=== PATIENT | male | born 1950 | race Caucasian/White ===

== ENCOUNTER 2017-10-04 12:57 | Inpatient (IN) | payer MEDICARE ==
[~2017-10-04] VITALS: Ht 188 cm; Wt 103.0 kg
[~2017-10-04 12:57] MED LIST: ACET1TAB12 PO; AEC81 PO; AMLO2.5T PO; AMLODIPINE PO; CLON0.5T4 PO; L.AC1CAP6 PO; LEVO500T2 PO; LOSA25TA21 PO; POTASSIUM IODIDE PO; VITAMIN D3 PO; VITAMIN K PO; allegra PO
[2017-10-04 13:20] LABS: BASOPHILS % (AUTO) 0.4 % (0.0-5.0); EOSINOPHILS % (AUTO) 3.9 % (0.0-8.0); HEMATOCRIT 39.1 % (42-54); LYMPHOCYTES % (AUTO) 15.2 % (21.0-51.0); MEAN CORPUSCULAR HEMOGLOBIN 28.9 pg (27.0-33.0); MEAN CORPUSCULAR HGB CONC 33.3 g/dL (32.0-36.0); MONOCYTES % (AUTO) 10.5 % (3.0-13.0); PLATELET COUNT (AUTO) 181 K/uL (130-400); RED CELL DISTRIBUTION WIDTH 15.6 % (11.0-15.5); WHITE BLOOD COUNT (AUTO) 8.1 K/uL (4.8-10.8)
[2017-10-04 13:30] LABS: POTASSIUM 3.9 mmol/L (3.5-5.1)
[2017-10-04] MEDS ORDERED: SODIUM CHLORIDE 0.9% 1000ML 1,000 ML IV ONE ×2 (13:32→15:53)
[2017-10-04 13:35] LABS: ALBUMIN 3.4 g/dL (3.5-5.0); BILIRUBIN,TOTAL 1.7 mg/dL (0.2-1.0); TOTAL PROTEIN, SERUM 7.4 g/dL (6.0-8.3)
[2017-10-04] MEDS ORDERED: CEFTRIAXONE SODIUM 1 GM ONE (14:08)
[2017-10-04] MEDS ORDERED: METRONIDAZOLE 500MG/100ML BAG 100 ML ONE (14:08)
[2017-10-04] MEDS ORDERED: IOPAMIDOL-370 75 ML VIAL IV ONE (14:14)
[2017-10-04] MEDS ORDERED: DIATR MEGLU/DIATRIZOATE SODIUM 30 ML BOTTLE PO ONE (14:15)
[2017-10-04] MEDS: SODIUM CHLORIDE 0.9% 1000ML 1,000 ML IV SCH (15:01)
[2017-10-04 15:14] LABS: BILIRUBIN,URINE Negative (NEGATIVE); COLOR,URINE Yellow (YELLOW); GLUCOSE, URINE (UA) Negative (NEGATIVE); KETONES,URINE Negative (NEGATIVE); LEUKOCYTE ESTERASE ,URINE Negative (NEGATIVE); NITRATE,URINE Negative (NEGATIVE); OCCULT BLOOD,URINE Negative (NEGATIVE); PH,URINE 6.5 (5.0-8.0); PROTEIN,URINE Negative (NEGATIVE)
[2017-10-04 15:15] LABS: APPEARANCE,URINE CLEAR (CLEAR)
[2017-10-04] MEDS ORDERED: GUAIFENESIN-DM 200/20 MG 10 ML PO PRN (15:15)
[2017-10-04] MEDS ORDERED: ACETAMINOPHEN-CODEINE 300/30MG TAB PO PRN (15:15)
[2017-10-04] MEDS ORDERED: ONDANSETRON HCL 4 MG/2 ML VIAL IV PRN (15:15)
[2017-10-04] MEDS ORDERED: ACETAMINOPHEN 325 MG TAB PO PRN ×2 (15:15)
[2017-10-04] MEDS ORDERED: ACETAMINOPHEN 325 MG TAB ONE (17:28)
[2017-10-04] MEDS ORDERED: ZOSYN 3.375GM+NS 50ML 50 ML IV SCH (21:00)
[2017-10-04] MEDS ORDERED: ZOSYN 3.375GM+NS 50ML 50 ML IV ONE (21:18)
[2017-10-04 22:00] VITALS: BP 154/89
[2017-10-04] MEDS ORDERED: LOSA100T29 PO (22:18)
[2017-10-05] MEDS: SODIUM CHLORIDE 0.9% 1000ML 1,000 ML IV SCH ×3 (00:19→21:24)
[2017-10-05 04:26] VITALS: BP 149/74
[2017-10-05] MEDS: MEPERIDINE-PF 25 MG/ML SYG IVP PRN ×2 (04:30→21:33)
[2017-10-05 05:28] LABS: HEMATOCRIT 36.3 % (42-54); MEAN CORPUSCULAR HEMOGLOBIN 28.9 pg (27.0-33.0); MEAN CORPUSCULAR HGB CONC 33.1 g/dL (32.0-36.0); MEAN CORPUSCULAR VOLUME 87.3 fL (79-99); PLATELET COUNT (AUTO) 168 K/uL (130-400); RED BLOOD CELL COUNT(AUTO) 4.16 MIL/uL (4.50-6.20); RED CELL DISTRIBUTION WIDTH 15.3 % (11.0-15.5); WHITE BLOOD COUNT (AUTO) 7.6 K/uL (4.8-10.8)
[2017-10-05 05:41] LABS: BILIRUBIN,TOTAL 1.4 mg/dL (0.2-1.0); TOTAL PROTEIN, SERUM 6.5 g/dL (6.0-8.3)
[2017-10-05 07:45] VITALS: BP 140/83
[2017-10-05] MEDS ORDERED: ZOSYN 3.375GM+NS 50ML 50 ML IV SCH (09:00)
[2017-10-05] MEDS: PANTOPRAZOLE SODIUM 40 MG TABLET.DR PO SCH (09:00)
[2017-10-05] MEDS ORDERED: LORAZEPAM 2 MG/ML 1 ML VIAL IVP SCH (09:53)
[2017-10-05 11:46] VITALS: BP 151/69
[2017-10-05 16:00] VITALS: BP 149/98
[2017-10-05] MEDS: ZOSYN 3.375GM+NS 50ML 50 ML IV SCH ×2 (16:07→19:13)
[2017-10-05 20:00] VITALS: BP 155/81
[2017-10-05] MEDS: UNASYN 3GM+NS 100ML 100 ML IV SCH (21:24)
[2017-10-06] VITALS (28 sets, daily range): BP systolic 107–170; BP diastolic 51–99
[2017-10-06] MEDS: MEPERIDINE-PF 25 MG/ML SYG IVP PRN ×2 (02:52→11:09)
[2017-10-06] MEDS: UNASYN 3GM+NS 100ML 100 ML IV SCH ×3 (04:59→22:31)
[2017-10-06 05:13] LABS: HEMATOCRIT 32.9 % (42-54); MEAN CORPUSCULAR HEMOGLOBIN 29.4 pg (27.0-33.0); MEAN CORPUSCULAR HGB CONC 34.3 g/dL (32.0-36.0); MEAN CORPUSCULAR VOLUME 85.7 fL (79-99); PLATELET COUNT (AUTO) 171 K/uL (130-400); RED BLOOD CELL COUNT(AUTO) 3.84 MIL/uL (4.50-6.20); RED CELL DISTRIBUTION WIDTH 15.1 % (11.0-15.5); WHITE BLOOD COUNT (AUTO) 6.4 K/uL (4.8-10.8)
[2017-10-06] MEDS: SODIUM CHLORIDE 0.9% 1000ML 1,000 ML IV SCH ×2 (07:01→17:42)
[2017-10-06] MEDS: PANTOPRAZOLE SODIUM 40 MG TABLET.DR PO SCH (08:05)
[2017-10-06] MEDS ORDERED: ISOVUE-370 50ML VIAL IV ONE (08:48)
[2017-10-06] MEDS ORDERED: NEOSTIGMINE METHYLSULFATE 1MG/ML IV ONE (09:00)
[2017-10-06] MEDS ORDERED: GLYCOPYRROLATE 0.2 MG/ML 5 ML VIAL ONE (09:00)
[2017-10-06] MEDS ORDERED: ONDANSETRON HCL 4 MG/2 ML VIAL ONE (09:00)
[2017-10-06] MEDS ORDERED: DEXAMETHASONE SOD PHOSPHATE 10MG/ML 1ML VIAL ONE (09:00)
[2017-10-06] MEDS ORDERED: LIDOCAINE PF 2% 5ML ABBOJECT ONE (09:01)
[2017-10-06] MEDS ORDERED: SUCCINYLCHOLINE 200MG/10ML SYR ONE (09:01)
[2017-10-06] MEDS ORDERED: PROPOFOL 10 MG/ML 20ML VIAL IV ONE ×2 (09:01→09:57)
[2017-10-06] MEDS ORDERED: FENTANYL CITRATE PF 50 MCG/1 ML 2ML VIAL ONE ×3 (09:01→12:01)
[2017-10-06] MEDS ORDERED: MIDAZOLAM HCL 1 MG/ML 2ML VIAL ONE (09:01)
[2017-10-06] MEDS ORDERED: BUPIVACAINE/PF 0.5% 30ML VIAL ONE (09:09)
[2017-10-06] MEDS ORDERED: MORPHINE SULFATE 2 MG/ML 1ML SYG ONE ×2 (11:16→11:31)
[2017-10-06] MEDS ORDERED: TRAMADOL HCL 50 MG TABLET PO PRN ×2 (12:45)
[2017-10-06] MEDS ORDERED: COMPOUND IV REFRIGERATED 1 EACH IVSOLN MISC PRN (19:00)
[2017-10-06] MEDS: DOCUSATE SODIUM 100 MG CAP PO SCH (20:03)
[2017-10-07] VITALS: BP 137/87
[2017-10-07] MEDS: SODIUM CHLORIDE 0.9% 1000ML 1,000 ML IV SCH (02:49)
[2017-10-07 04:00] VITALS: BP 145/81
[2017-10-07] MEDS: UNASYN 3GM+NS 100ML 100 ML IV SCH ×2 (06:03→14:49)
[2017-10-07 07:46] VITALS: BP 131/78
[2017-10-07] MEDS: DOCUSATE SODIUM 100 MG CAP PO SCH (08:58)
[2017-10-07] MEDS: PANTOPRAZOLE SODIUM 40 MG TABLET.DR PO SCH (08:58)
[2017-10-07] MEDS ORDERED: TRAM50TA2 PO (10:27)
[2017-10-07 11:21] VITALS: BP 125/69
[2017-10-07 16:33] VITALS: BP 162/94
== END 2017-10-07 18:20 | disposition home or self-care (01) | DRG 419 ==
LOC: EDH 12:57 → EDHIP 15:01 → OBSVTOIN 15:01 → 4BH 22:00
PROVIDERS: ADMIT Family Medicine; ATTEND Family Medicine
PROC: 0FT44ZZ Resection of Gallbladder, Percutaneous Endoscopic Approach (ICD-10-PCS; principal; 2017-10-06 09:00)
PROC: BF101ZZ Fluoroscopy of Bile Ducts using Low Osmolar Contrast (ICD-10-PCS; 2017-10-06 09:00)
DX: K81.0 Acute cholecystitis (principal); I10 Essential (primary) hypertension
CPT/HCPCS: 36415; 48400; 71045; 74018; 74177; 76705; 80053; 81003; 83690; 84484; 85025; 85027; 87804; 88304; 93005; 99291; C1758; J0295; J0330; J0696; J1100; J2001; J2060; J2175; J2250; J2405; J2543; J2704; J2710; J3010; J3490; J7030; J7120; Q9963; Q9967

== ENCOUNTER 2022-07-07 15:13 | Emergency (ER) | payer MEDICARE ==
[~2022-07-07] VITALS: Ht 185.4 cm; Wt 104.3 kg
[~2022-07-07 15:13] MED LIST changes: -ACET1TAB12 PO; -AEC81 PO; -AMLO2.5T PO; +AMLO2.5T4 PO; -AMLODIPINE PO; -L.AC1CAP6 PO; -LEVO500T2 PO; +LOSA100T58 PO; -LOSA25TA21 PO; -POTASSIUM IODIDE PO; +TRAM50TA2 PO; -VITAMIN D3 PO; -VITAMIN K PO
[2022-07-07] MEDS ORDERED: DILTIAZEM 25MG INJ IVP ONE (15:30)
[2022-07-07 15:34] LABS: BASOPHILS % (AUTO) 0.9 % (0.0-5.0); EOSINOPHILS % (AUTO) 5.1 % (0.0-8.0); HEMATOCRIT 40.1 % (42-54); LYMPHOCYTES % (AUTO) 28.6 % (21.0-51.0); MEAN CORPUSCULAR HEMOGLOBIN 29.6 pg (27.0-33.0); MEAN CORPUSCULAR HGB CONC 32.9 g/dL (32.0-36.0); MEAN CORPUSCULAR VOLUME 89.9 fL (79-99); MONOCYTES % (AUTO) 9.8 % (3.0-13.0); NEUTROPHILS % (AUTO) 55.2 % (40.0-77.0); PLATELET COUNT (AUTO) 190 K/uL (130-400); RED BLOOD CELL COUNT(AUTO) 4.46 MIL/uL (4.50-6.20); RED CELL DISTRIBUTION WIDTH 13.8 % (11.0-15.5); WHITE BLOOD COUNT (AUTO) 5.7 K/uL (4.8-10.8)
[2022-07-07 15:50] LABS: POTASSIUM 4.2 mmol/L (3.5-5.1)
[2022-07-07 16:18] VITALS: BP 128/71
[2022-07-07 16:28] LABS: B-TYPE NATRIURETIC PEPTIDE 42 pg/mL (0-100)
[2022-07-07] MEDS ORDERED: APIXABAN 5 MG TABLET PO ONE (18:00)
[2022-07-07] MEDS ORDERED: METOPROLOL TARTRATE 50 MG TAB PO ONE (18:00)
[2022-07-07] MEDS ORDERED: APIX5TAB PO (18:04)
[2022-07-07] MEDS ORDERED: METO50TA18 PO (18:04)
== END 2022-07-07 18:39 | disposition home or self-care (01) ==
LOC: EDH 15:13
DX: I48.92 Unspecified atrial flutter (principal); E78.00 Pure hypercholesterolemia, unspecified; I10 Essential (primary) hypertension; Z98.890 Other specified postprocedural states; Z79.899 Other long term (current) drug therapy; Z88.6 Allergy status to analgesic agent
CPT/HCPCS: 99285; 96374; 71045; 82550; 83735; 84484 ×2; 80053; 83880; 85025; 36415; 93005 ×2; J3490

== ENCOUNTER 2023-07-16 06:02 | Day surgery (SDC) | payer MEDICARE ==
[2023-07-11 12:53] LABS: BASOPHILS # (AUTO) 0.06 K/uL (0.00-0.20); BASOPHILS % (AUTO) 1.1 % (0.0-5.0); EOSINOPHILS # (AUTO) 0.24 K/uL (0.00-0.70); EOSINOPHILS % (AUTO) 4.4 % (0.0-8.0); HEMATOCRIT 40.4 % (42-54); IMMATURE GRANULOCYTE ABSOLUTE 0.02 K/uL (0-1); LYMPHOCYTES # (AUTO) 1.7 K/uL (1.0-4.8); LYMPHOCYTES % (AUTO) 31.3 % (21.0-51.0); MEAN CORPUSCULAR HEMOGLOBIN 30.3 pg (27.0-33.0); MEAN CORPUSCULAR HGB CONC 32.7 g/dL (32.0-36.0); MEAN CORPUSCULAR VOLUME 92.7 fL (79-99); MONOCYTES # (AUTO) 0.6 K/uL (0.1-1.0); MONOCYTES % (AUTO) 11.2 % (3.0-13.0); NEUTROPHILS # (AUTO) 2.8 K/uL (1.8-7.7); NEUTROPHILS % (AUTO) 51.6 % (40.0-77.0); PLATELET COUNT (AUTO) 173 K/uL (130-400); RED BLOOD CELL COUNT(AUTO) 4.36 MIL/uL (4.50-6.20); RED CELL DISTRIBUTION WIDTH 13.8 % (11.0-15.5); WHITE BLOOD COUNT (AUTO) 5.4 K/uL (4.8-10.8)
[2023-07-11 13:00] LABS: CREATININE 1.1 mg/dL (0.5-1.5); POTASSIUM 4.8 mmol/L (3.5-5.1)
[2023-07-11 13:03] LABS: INR < 0.93 (0.85-1.15); PROTHROMBIN TIME 10.8 SEC (9.6-11.6)
[2023-07-11 13:04] VITALS: BP 141/73; PULSE 63; RESP 18
[2023-07-11 13:05] LABS: PARTIAL THROMBOPLASTIN TIME 32.5 SEC (26.3-35.5)
[~2023-07-16] VITALS: Ht 185.4 cm; Wt 113.5 kg
[2023-07-16] VITALS (8 sets, daily range): BP systolic 112–147; BP diastolic 52–75; PULSE 61–72; RESP 14–17
[~2023-07-16 06:02] MED LIST changes: +APIX5TAB PO; +CIALIS PO; -CLON0.5T4 PO; -LOSA100T58 PO; +METO37.5 PO; +TAMS-1 PO; -TRAM50TA2 PO; -allegra PO
[2023-07-16] MEDS ORDERED: 0.9%NACL 1000ML 1,000 ML IV ONE (06:50)
[2023-07-16] MEDS ORDERED: LIDOCAINE HCL 1% MDV 50ML VIAL ONE (07:44)
[2023-07-16] MEDS ORDERED: ISOPROTERENOL HCL 0.2 MG/ML AMP/VIAL/BAG ONE (07:44)
[2023-07-16] MEDS ORDERED: MEPERIDINE-PF 25 MG/ML SYG ONE ×3 (07:44→08:34)
[2023-07-16] MEDS ORDERED: MIDAZOLAM HCL 1 MG/ML 2ML VIAL ONE ×3 (07:45→08:34)
[2023-07-16] MEDS ORDERED: HEPARIN 10,000 UNIT/10ML (1,000 UNIT/ML) VIAL ONE (07:59)
== END 2023-07-16 12:30 | disposition home or self-care (01) ==
LOC: DAH 06:02
PROVIDERS: ATTEND Internal Medicine Cardiovascular Disease
DX: I48.3 Typical atrial flutter (principal); I10 Essential (primary) hypertension; G47.33 Obstructive sleep apnea (adult) (pediatric); Z79.01 Long term (current) use of anticoagulants; Z79.899 Other long term (current) drug therapy; Z98.890 Other specified postprocedural states
CPT/HCPCS: 80048; 85025; 85610; 85730; 36415; 93005; 93653; C1894 ×2; C1732 ×2; A4649 ×2; J7030; J1644 ×2; J2250 ×3; J2175 ×3; J3490; A4215; A4222; A4221; A4663; A4216; A4606; A4223 ×3; 99156; 99157

== ENCOUNTER 2024-03-31 15:49 | Emergency (ER) | payer MEDICARE ==
[~2024-03-31] VITALS: Ht 185.4 cm; Wt 113.4 kg
[2024-03-31 15:57] VITALS: BP 137/73; PULSE 82; RESP 20
[2024-03-31 17:06] LABS: BASOPHILS # (AUTO) 0.04 K/uL (0.00-0.20); BASOPHILS % (AUTO) 0.7 % (0.0-5.0); EOSINOPHILS # (AUTO) 0.22 K/uL (0.00-0.70); EOSINOPHILS % (AUTO) 3.9 % (0.0-8.0); HEMATOCRIT 39.2 % (42-54); IMMATURE GRANULOCYTE ABSOLUTE 0.01 K/uL (0-1); LYMPHOCYTES # (AUTO) 1.5 K/uL (1.0-4.8); LYMPHOCYTES % (AUTO) 26.8 % (21.0-51.0); MEAN CORPUSCULAR HEMOGLOBIN 28.7 pg (27.0-33.0); MEAN CORPUSCULAR HGB CONC 32.7 g/dL (32.0-36.0); MEAN CORPUSCULAR VOLUME 87.9 fL (79-99); MONOCYTES # (AUTO) 0.6 K/uL (0.1-1.0); MONOCYTES % (AUTO) 10.9 % (3.0-13.0); NEUTROPHILS # (AUTO) 3.2 K/uL (1.8-7.7); NEUTROPHILS % (AUTO) 57.5 % (40.0-77.0); PLATELET COUNT (AUTO) 192 K/uL (130-400); RED BLOOD CELL COUNT(AUTO) 4.46 MIL/uL (4.50-6.20); WHITE BLOOD COUNT (AUTO) 5.6 K/uL (4.8-10.8)
[2024-03-31 17:17] LABS: CREATININE 1.1 mg/dL (0.5-1.3); POTASSIUM 4.1 mmol/L (3.5-5.1)
[2024-03-31 17:22] LABS: ALBUMIN 3.8 g/dL (3.5-5.0); BILIRUBIN,TOTAL 0.9 mg/dL (0.2-1.0)
== END 2024-03-31 18:08 | disposition left against medical advice (07) ==
LOC: EDH 15:49
DX: R07.89 Other chest pain (principal); R00.2 Palpitations; I48.91 Unspecified atrial fibrillation; E78.00 Pure hypercholesterolemia, unspecified; I10 Essential (primary) hypertension; Z90.49 Acquired absence of other specified parts of digestive tract
CPT/HCPCS: 36415; 80053; 83735; 85025; 93005